=== PATIENT | female | born 1990 | race Hispanic/Latino ===

== ENCOUNTER 2021-05-01 05:30 | Inpatient (IN) | payer MEDICAID, OTHER, SELFPAY ==
[2021-05-01 06:16] VITALS: BMI 27.6
[2021-05-01] MEDS ORDERED: Lidocaine 1% (PF) 30 ML VIAL SC PRN (06:51)
[2021-05-01] MEDS ORDERED: Ibuprofen 800 MG TAB PO PRN (06:51)
[2021-05-01] MEDS ORDERED: Butorphanol Tartrate 1 MG/ML VIAL SLOW IVP PRN (06:51)
[2021-05-01] MEDS ORDERED: HYDROcodone/Acetaminophen 5/325 mg Tablet PO PRN ×4 (06:51→13:56)
[2021-05-01] MEDS ORDERED: hydrALAZINE 20 MG/ML VIAL SLOW IVP PRN ×2 (06:51→13:56)
[2021-05-01] MEDS ORDERED: Ondansetron PF 4 MG/2 ML Vial IVP PRN ×3 (06:51→13:56)
[2021-05-01] MEDS ORDERED: Promethazine HCl 25 MG/ML VIAL IM PRN ×2 (06:51→11:56)
[2021-05-01] MEDS ORDERED: NS w/ Oxytocin 30 units 500 ML IVPB SCH (07:00)
[2021-05-01] MEDS ORDERED: NS w/ Oxytocin 30 units 500 ML IV SCH ×3 (07:00→13:56)
[2021-05-01 07:48] LABS: Hemoglobin 12.1 g/dL (12.0-15.5); Mean Corpuscular HGB CONC 33.2 g/dL (32.0-36.0); Mean Corpuscular Hemoglobin 29.7 pg (27.0-33.0); Mean Corpuscular Volume 89.7 fl (81.6-98.3); Mean Platelet Volume 11.4 fl (7.4-10.4); Platelet Count 241 10x3/uL (150-450); RBC Distribution Width 13.6 % (11.5-14.5); Red Blood Cell (RBC) Count 4.07 10x6/uL (3.90-5.03); White Blood Cell (WBC) Count 9.8 10x3/uL (3.5-10.5)
[2021-05-01] MEDS ORDERED: Fentanyl 2 mcg/Bup 0.1% Cadd 100 ML ONE (08:01)
[2021-05-01 08:40] LABS: Hep B Surf Ag Non-Reactive S/CO (NonReactive)
[2021-05-01 08:41] LABS: Syphilis Antibody Nonreactive (Nonreactive); Syphilis Antibody Index 0.03 S/CO (<1.00 Non-Reactive)
[2021-05-01 08:52] LABS: HBSAg Index 0.14 S/CO (0-0.99)
[2021-05-01] MEDS ORDERED: Hydrocerin (Eucerin) Cream 120 gm Jar TOP PRN (11:56)
[2021-05-01] MEDS ORDERED: diphenhydrAMINE 50 MG/ML VIAL IVP PRN (11:56)
[2021-05-01] MEDS ORDERED: Lactated Ringer's 500 ML IV PRN (11:56)
[2021-05-01] MEDS ORDERED: Naloxone HCl 0.4 mg/ml Vial IVP PRN ×2 (11:56)
[2021-05-01] MEDS ORDERED: Acetaminophen 325 MG TAB PO PRN (11:56)
[2021-05-01] MEDS ORDERED: ePHEDrine Sulfate 50 MG/10 ML VIAL SLOW IVP PRN (11:56)
[2021-05-01] MEDS ORDERED: Communication Order-Pharmacy FS SCH (12:00)
[2021-05-01] MEDS ORDERED: Fentanyl 2 mcg/Bupivacaine 0.1% Cassette 100 ML EPIDURAL SCH (12:00)
[2021-05-01] MEDS ORDERED: Boostrix 0.5 ML (Tdap) VIAL IM ONE (13:56)
[2021-05-01] MEDS ORDERED: Bisacodyl 10 MG SUPP PR PRN (13:56)
[2021-05-01] MEDS ORDERED: Lanolin Ointment 7 GM TUBE TOP PRN (13:56)
[2021-05-01] MEDS ORDERED: Benzocaine-Menthol 82.5 ML CAN TOP PRN (13:56)
[2021-05-01] MEDS ORDERED: Milk Of Magnesia 30 ML UDCUP PO PRN (13:56)
[2021-05-01] MEDS ORDERED: Preparation H Ointment 28 GM TUBE PR PRN (13:56)
[2021-05-01] MEDS ORDERED: diphenhydrAMINE 25 MG CAP PO PRN (13:56)
[2021-05-01] MEDS: Ferrous Sulfate 325 MG TAB PO SCH (16:11)
[2021-05-01] MEDS: Ibuprofen 800 MG TAB PO SCH (16:42)
[2021-05-01] MEDS: Docusate Calcium (SURFAK) 240 MG CAP PO SCH (21:27)
[2021-05-02] MEDS: Ibuprofen 800 MG TAB PO SCH ×3 (01:00→15:51)
[2021-05-02] MEDS: Ferrous Sulfate 325 MG TAB PO SCH ×2 (07:31→15:51)
[2021-05-02] MEDS: Docusate Calcium (SURFAK) 240 MG CAP PO SCH (08:42)
[2021-05-02] MEDS ORDERED: Prenatal Vitamin 1 TAB PO SCH (09:00)
[2021-05-02 14:46] VITALS: BP 110/68; TEMP 98.9
== END 2021-05-02 18:22 | disposition home or self-care (01) | DRG 807 ==
LOC: CSHLD 05:34 → CSHPP 14:35
PROVIDERS: ADMIT Obstetrics & Gynecology; ATTEND Obstetrics & Gynecology
PROC: 10E0XZZ Delivery of Products of Conception, External Approach (ICD-10-PCS; principal; 2021-05-01)
PROC: 0HQ9XZZ Repair Perineum Skin, External Approach (ICD-10-PCS; 2021-05-01)
DX: O77.0 Labor and delivery complicated by meconium in amniotic fluid (principal); Z37.0 Single live birth; Z3A.39 39 weeks gestation of pregnancy; Z20.822 Contact with and (suspected) exposure to COVID-19; O70.0 First degree perineal laceration during delivery
CPT/HCPCS: 36415; 51702; 85027; 86780; 86850; 86900; 86901; 87340; J2590

== ENCOUNTER 2025-07-17 06:00 | Inpatient (IN) | payer OTHER ==
[2025-07-17 07:23] VITALS: BMI 27.4
[2025-07-17] MEDS ORDERED: Ondansetron PF 4 MG/2 ML Vial IVP PRN ×3 (07:23→13:54)
[2025-07-17] MEDS ORDERED: hydrALAZINE 20 MG/ML VIAL SLOW IVP PRN ×2 (07:23→13:54)
[2025-07-17] MEDS ORDERED: Lidocaine 1% (PF) 30 ML VIAL SC PRN (07:23)
[2025-07-17] MEDS ORDERED: HYDROcodone/Acetaminophen 5/325 mg Tablet PO PRN ×4 (07:23→13:54)
[2025-07-17] MEDS: Oxytocin 30 units/NS 500 ML 500 ML IV SCH ×2 (07:55→11:48)
[2025-07-17 07:59] LABS: Hematocrit 32.9 % (34.9-44.5); Hemoglobin 11.1 g/dL (12.0-15.5); Mean Corpuscular Hemoglobin 29.2 pg (27.0-33.0); Mean Corpuscular Volume 86.6 fL (81.6-98.3); Platelet Count 248 10x3/uL (150-450); Red Blood Cell (RBC) Count 3.80 10x6/uL (3.90-5.03); White Blood Cell (WBC) Count 5.75 10x3/uL (3.5-10.5)
[2025-07-17] MEDS ORDERED: Bupivacaine 0.25% HCL 30 ML VIAL ONE (08:00)
[2025-07-17 08:35] LABS: Hep B Surf Ag - L&D Non-Reactive S/CO (NonReactive)
[2025-07-17 08:36] LABS: Syphilis Antibody Index 0.05 S/CO (<1.00 Non-Reactive)
[2025-07-17] MEDS: fentaNYL/Ropivacaine Epidural 100 ML ONE (09:47)
[2025-07-17] MEDS ORDERED: diphenhydrAMINE 50 MG/ML VIAL IVP PRN (10:14)
[2025-07-17] MEDS ORDERED: Acetaminophen 325 MG TAB PO PRN (10:14)
[2025-07-17] MEDS ORDERED: Communication Order-Pharmacy FS SCH (10:15)
[2025-07-17] MEDS ORDERED: fentaNYL 2 mcg/Ropivacaine 0.2% Epidural 100 ML CADD EPIDURAL SCH (10:15)
[2025-07-17] MEDS: Methylergonovine 0.2 MG/ML VIAL ONE ×2 (12:30→16:11)
[2025-07-17] MEDS: Ibuprofen 800 MG TAB PO PRN (13:53)
[2025-07-17] MEDS ORDERED: Preparation H Ointment 28 GM TUBE PR PRN (13:54)
[2025-07-17] MEDS ORDERED: diphenhydrAMINE 25 MG CAP PO PRN (13:54)
[2025-07-17] MEDS ORDERED: Benzocaine-Menthol 82.5 ML CAN TOP PRN (13:54)
[2025-07-17] MEDS ORDERED: Milk Of Magnesia 30 ML UDCUP PO PRN (13:54)
[2025-07-17] MEDS ORDERED: Lanolin Ointment 7 GM TUBE TOP PRN (13:54)
[2025-07-17] MEDS ORDERED: Oxytocin 30 units/NS 500 ML 500 ML IV SCH (13:54)
[2025-07-17] MEDS ORDERED: Bisacodyl 10 MG SUPP PR PRN (13:54)
[2025-07-17] MEDS: Boostrix 0.5 ML (Tdap) VIAL (>/=7 yrs of age) IM ONE (16:11)
[2025-07-17] MEDS: Methylergonovine 0.2 MG/ML VIAL IM SCH (16:11)
[2025-07-17] MEDS: Carboprost 250 MCG/ML AMP ONE (16:11)
[2025-07-17] MEDS: Tranexamic Acid 1,000 MG/10 ML VIAL ONE (16:11)
[2025-07-17] MEDS: Ferrous Sulfate 325 MG TAB PO SCH (16:13)
[2025-07-17] MEDS: Ibuprofen 800 MG TAB PO SCH (21:24)
[2025-07-18 11:29] VITALS: BP 124/75; TEMP 97.8
== END 2025-07-18 13:15 | disposition home or self-care (01) | DRG 807 ==
LOC: CSHLD 06:26 → CSHPP 14:40
PROVIDERS: ADMIT Obstetrics & Gynecology; ATTEND Obstetrics & Gynecology
PROC: 10E0XZZ Delivery of Products of Conception, External Approach (ICD-10-PCS; principal; 2025-07-17)
PROC: 3E033XZ Introduction of Vasopressor into Peripheral Vein, Percutaneous Approach (ICD-10-PCS; 2025-07-17)
PROC: 10907ZC Drainage of Amniotic Fluid, Therapeutic from Products of Conception, Via Natural or Artificial Opening (ICD-10-PCS; 2025-07-17)
DX: O24.429 Gestational diabetes mellitus in childbirth, unspecified control (principal); Z37.0 Single live birth; Z3A.39 39 weeks gestation of pregnancy; O66.0 Obstructed labor due to shoulder dystocia
CPT/HCPCS: 51702; 85027; 86780; 86850; 86900; 86901; 87340; J0665; J2210; J2590; J7120